=== PATIENT | female | born 1930 | race Caucasian/White ===

== ENCOUNTER → 2016-04-13 | Outpatient (CLI) | payer BC ==
[2016-04-13 13:27] LABS: BASO % 0.5 %; BASO ABS # 0.03 K/uL (0-0.2); COMPLETE YES; HEMATOCRIT 39.6 % (37-47); IG% 0.3 %; LYMPH % 17.6 %; LYMPH ABS # 1.15 K/uL (1.2-3.4); MEAN CELL VOLUME 94.3 fL (80-100); MEAN CORPUSCULAR HGB CONC 30.8 g/dl (32-36); MEAN PLATELET VOLUME 12.1 fL (7.4-10.4); MONO % 12.1 %; NEUT % 67.5 %; PLATELET COUNT 149 K/uL (130-400); WHITE BLOOD COUNT 6.54 K/uL (4.8-10.8)
[2016-04-13 13:39] LABS: TOTAL IRON BINDING CAPACITY 358 mcg/dl (250-450)
--- NOTE | 2016-04-21 13:26 | CODING QUERY MEDICAL NECESSITY ---
SUPPORTING DIAGNOSIS NEEDED A supporting diagnosis is required for the test/procedure performed on this patient in order for us to be reimbursed by the patient's insurance. Please provide a supporting diagnosis for the following test/procedure listed below next to the test name along with your signature. *If there is no additional diagnosis for this patient that would support the following test/procedure please document that below next to the test/procedure. Test(s)/Procedure(s) that require a supporting diagnosis: DOS 04/13 * Vitamin B12 DIAGNOSIS: * Folic Acid DIAGNOSIS: Provider Signature: Date: Thank you Michelle Estrada [facility] Information [facility] Once completed, please kindly fax back to [phone] For questions please call [phone]
== END | disposition home or self-care (01) ==
LOC: C.LABMFLN 10:17
PROVIDERS: ATTEND Family Medicine
DX: I48.91 Unspecified atrial fibrillation (principal); D64.9 Anemia, unspecified

== ENCOUNTER → 2016-06-09 | Outpatient (CLI) | payer BC ==
[2016-06-09 13:11] LABS: ALT/SGPT 23 U/L (12-78); AST/SGOT 21 U/L (15-37); BLOOD UREA NITROGEN 26 mg/dl (7-18); BUN/CREATININE RATIO 29.4 (10-20); CALCIUM 9.3 mg/dl (8.5-10.1); CARBON DIOXIDE 28 mmol/L (21-32); CHLORIDE 105 mmol/L (98-107); CHOLESTEROL 136 mg/dl (0-200); CREATININE 0.87 mg/dl (0.60-1.20); GLUCOSE 100 mg/dl (70-99); MAGNESIUM 2.5 mg/dl (1.8-2.4); SODIUM 140 mmol/L (136-145)
[2016-06-09 13:14] LABS: CHOLESTEROL/HDL RATIO 3.4; HDL CHOLESTEROL 40 mg/dl; LDL CHOLESTEROL CALCULATED 68 mg/dl; TRIGLYCERIDES 140 mg/dl (0-150); VERY LOW DENSITY LIPOPROT CALC 28 mg/dl
--- NOTE | 2016-06-18 08:35 | CODING QUERY MEDICAL NECESSITY ---
SUPPORTING DIAGNOSIS NEEDED A supporting diagnosis is required for the test/procedure performed on this patient in order for us to be reimbursed by the patient's insurance. Please provide a supporting diagnosis for the following test/procedure listed below next to the test name along with your signature. *If there is no additional diagnosis for this patient that would support the following test/procedure please document that below next to the test/procedure. Test(s)/Procedure(s) that require a supporting diagnosis: * VITAMIN D 25-HYDROXY DIAGNOSIS: * DOS: 06/09/16 Provider Signature: Date: Thank you Heather Hurd [facility] Information Management Once completed, please kindly fax back to [phone] For questions please call [phone]
== END | disposition home or self-care (01) ==
LOC: C.LABMFLN 07:48
PROVIDERS: ATTEND Family Medicine
DX: M19.90 Unspecified osteoarthritis, unspecified site (principal); Z23 Encounter for immunization; M10.9 Gout, unspecified; I48.91 Unspecified atrial fibrillation; I10 Essential (primary) hypertension; E78.00 Pure hypercholesterolemia, unspecified; D64.9 Anemia, unspecified; E83.42 Hypomagnesemia; E55.9 Vitamin D deficiency, unspecified

== ENCOUNTER → 2016-06-25 | Outpatient (CLI) | payer BC | END | disposition home or self-care (01) | LOC: C.LABMFLN 08:28 | PROVIDERS: ATTEND Internal Medicine Cardiovascular Disease | DX: I48.2 Chronic atrial fibrillation (principal) ==

== ENCOUNTER → 2016-10-21 | Outpatient (CLI) | payer BC ==
[2016-10-21 13:12] LABS: INR 2.6 (0.9-1.1); PROTHROMBIN TIME (PATIENT) 28.5 SECONDS (9.0-12.0)
[2016-10-21 18:09] LABS: ALT/SGPT 20 U/L (12-78); AST/SGOT 18 U/L (15-37); BLOOD UREA NITROGEN 23 mg/dl (7-18); BUN/CREATININE RATIO 24.1 (10-20); CALCIUM 10.2 mg/dl (8.5-10.1); CARBON DIOXIDE 29 mmol/L (21-32); CHLORIDE 105 mmol/L (98-107); CREATININE 0.95 mg/dl (0.60-1.20); GLUCOSE 83 mg/dl (70-99); MAGNESIUM 2.4 mg/dl (1.8-2.4); POTASSIUM 4.3 mmol/L (3.5-5.1); SODIUM 141 mmol/L (136-145)
[2016-10-21 18:13] LABS: CHOLESTEROL 137 mg/dl (0-200); CHOLESTEROL/HDL RATIO 4.4; HDL CHOLESTEROL 31 mg/dl; LDL CHOLESTEROL CALCULATED 77 mg/dl; TOTAL IRON BINDING CAPACITY 307 mcg/dl (250-450); TRIGLYCERIDES 147 mg/dl (0-150); URIC ACID 4.5 mg/dl (2.6-7.2); VERY LOW DENSITY LIPOPROT CALC 29 mg/dl
[2016-10-21 18:17] LABS: BASO % 0.4 %; BASO ABS # 0.03 K/uL (0-0.2); COMPLETE YES; EOS % 2.2 %; HEMATOCRIT 38.4 % (37-47); IG% 0.3 %; LYMPH % 23.8 %; LYMPH ABS # 1.87 K/uL (1.2-3.4); MEAN CELL VOLUME 94.3 fL (80-100); MEAN CORPUSCULAR HEMOGLOBIN 28.7 pg (25-34); MEAN CORPUSCULAR HGB CONC 30.5 g/dl (32-36); MEAN PLATELET VOLUME 12.3 fL (7.4-10.4); MONO % 11.7 %; NEUT % 61.6 %; PLATELET COUNT 158 K/uL (130-400); RED BLOOD COUNT 4.07 M/uL (4.2-5.4); WHITE BLOOD COUNT 7.85 K/uL (4.8-10.8)
== END | disposition home or self-care (01) ==
LOC: C.LABMFLN 11:49
PROVIDERS: ATTEND Family Medicine
DX: M10.9 Gout, unspecified (principal); I48.91 Unspecified atrial fibrillation; I10 Essential (primary) hypertension; E78.00 Pure hypercholesterolemia, unspecified; D64.9 Anemia, unspecified

== ENCOUNTER → 2016-11-11 | Outpatient (CLI) | payer BC ==
[2016-11-11 18:01] LABS: HEMATOCRIT 38.9 % (37-47)
--- NOTE | 2016-12-03 09:09 | CODING QUERY MEDICAL NECESSITY ---
SUPPORTING DIAGNOSIS NEEDED Dr. Coreas, A supporting diagnosis is required for the test/procedure performed on this patient in order for us to be reimbursed by the patient's insurance. Please provide a supporting diagnosis for the following test/procedure listed below next to the test name along with your signature. *If there is no additional diagnosis for this patient that would support the following test/procedure please document that below next to the test/procedure. Test(s)/Procedure(s) that require a supporting diagnosis: * ([id number]) B12 VITAMIN LEVEL DIAGNOSIS: * ([id number]) FOLATE LEVEL DIAGNOSIS: DATE OF SERVICE: 11/11/16 Provider Signature: Date: Thank you Kwadwo Madsen [facility] Information Management Once completed, please kindly fax back to [phone] For questions please call [phone]
== END | disposition home or self-care (01) ==
LOC: C.LABMFLN 11:53
PROVIDERS: ATTEND Family Medicine
DX: D64.9 Anemia, unspecified (principal); I48.91 Unspecified atrial fibrillation; E53.8 Deficiency of other specified B group vitamins

== ENCOUNTER → 2016-12-09 | Outpatient (CLI) | payer BC ==
[2016-12-09 17:52] LABS: BASO % 0.3 %; BASO ABS # 0.02 K/uL (0-0.2); COMPLETE YES; EOS % 2.1 %; HEMATOCRIT 37.1 % (37-47); IG% 0.5 %; LYMPH % 21.5 %; MEAN CELL VOLUME 95.4 fL (80-100); MEAN CORPUSCULAR HEMOGLOBIN 29.8 pg (25-34); MEAN CORPUSCULAR HGB CONC 31.3 g/dl (32-36); MEAN PLATELET VOLUME 11.6 fL (7.4-10.4); MONO % 10.3 %; NEUT % 65.3 %; PLATELET COUNT 144 K/uL (130-400); RED BLOOD COUNT 3.89 M/uL (4.2-5.4); WHITE BLOOD COUNT 6.52 K/uL (4.8-10.8)
[2016-12-09 18:08] LABS: ALT/SGPT 15 U/L (12-78); BLOOD UREA NITROGEN 30 mg/dl (7-18); BUN/CREATININE RATIO 32.3 (10-20); CALCIUM 9.9 mg/dl (8.5-10.1); CARBON DIOXIDE 29 mmol/L (21-32); CHLORIDE 106 mmol/L (98-107); CREATININE 0.94 mg/dl (0.60-1.20); GLUCOSE 101 mg/dl (70-99); MAGNESIUM 2.5 mg/dl (1.8-2.4); POTASSIUM 4.1 mmol/L (3.5-5.1); SODIUM 140 mmol/L (136-145)
[2016-12-09 18:19] LABS: ALB/GLOB RATIO 0.9 (0.9-2); ALKALINE PHOSPHATASE 118 U/L (45-117); AST/SGOT 18 U/L (15-37)
== END | disposition home or self-care (01) ==
LOC: C.LABMFLN 11:52
PROVIDERS: ATTEND Family Medicine
DX: I48.91 Unspecified atrial fibrillation (principal); I10 Essential (primary) hypertension; R26.9 Unspecified abnormalities of gait and mobility; E78.00 Pure hypercholesterolemia, unspecified; G62.9 Polyneuropathy, unspecified; E83.42 Hypomagnesemia; R29.898 Other symptoms and signs involving the musculoskeletal system

== ENCOUNTER → 2017-03-30 | Outpatient (CLI) | payer BC ==
[2017-03-30 12:50] LABS: BASO % 0.4 %; BASO ABS # 0.03 K/uL (0-0.2); EOS % 2.4 %; EOS ABS # 0.16 K/uL (0-0.5); HEMATOCRIT 35.4 % (37-47); HEMOGLOBIN 10.9 g/dL (12.0-16.0); IG# 0.02 K/uL (0.00-0.02); LYMPH % 20.6 %; LYMPH ABS # 1.38 K/uL (1.2-3.4); MEAN CELL VOLUME 95.9 fL (80-100); MEAN CORPUSCULAR HEMOGLOBIN 29.5 pg (25-34); MEAN CORPUSCULAR HGB CONC 30.8 g/dl (32-36); MEAN PLATELET VOLUME 12.2 fL (7.4-10.4); MONO % 10.7 %; MONO ABS # 0.72 K/uL (0.11-0.59); NEUT % 65.6 %; NEUT ABS # 4.39 K/uL (1.4-6.5); PLATELET COUNT 149 K/uL (130-400); RED CELL DISTRIBUTION WIDTH CV 16.2 % (11.5-14.5); RED CELL DISTRIBUTION WIDTH SD 57.4 fL (36.4-46.3)
[2017-03-30 13:23] LABS: BLOOD UREA NITROGEN 31 mg/dl (7-18); CREATININE 1.04 mg/dl (0.60-1.20); GLUCOSE 106 mg/dl (70-99); SODIUM 140 mmol/L (136-145)
[2017-03-30 13:24] LABS: ALT/SGPT 18 U/L (12-78); AST/SGOT 18 U/L (15-37); CALCIUM 9.6 mg/dl (8.5-10.1); CARBON DIOXIDE 28 mmol/L (21-32); POTASSIUM 4.7 mmol/L (3.5-5.1)
[2017-03-30 13:29] LABS: CHOLESTEROL 143 mg/dl (0-200); LDL CHOLESTEROL CALCULATED 90 mg/dl; TRANSFERRIN 279 mg/dl (200-360)
--- NOTE | 2017-04-16 11:56 | CODING QUERY MEDICAL NECESSITY ---
SUPPORTING DIAGNOSIS NEEDED A supporting diagnosis is required for the test/procedure performed on this patient in order for us to be reimbursed by the patient's insurance. Please provide a supporting diagnosis for the following test/procedure listed below next to the test name along with your signature. *If there is no additional diagnosis for this patient that would support the following test/procedure please document that below next to the test/procedure. Test(s)/Procedure(s) that require a supporting diagnosis: * VITAMIN B12 DIAGNOSIS: * FOLIC ACID DIAGNOSIS: Provider Signature: Date: Thank you Trina [place] [employer] Information Management Once completed, please kindly fax back to [phone] For questions please call [phone]
== END | disposition home or self-care (01) ==
LOC: C.LABMFLN 08:50
PROVIDERS: ATTEND Family Medicine
DX: M10.9 Gout, unspecified (principal); I48.91 Unspecified atrial fibrillation; I10 Essential (primary) hypertension; D64.9 Anemia, unspecified; E78.00 Pure hypercholesterolemia, unspecified; M19.90 Unspecified osteoarthritis, unspecified site; E83.42 Hypomagnesemia

== ENCOUNTER → 2017-04-22 | Outpatient (CLI) | payer BC ==
[2017-04-22 12:37] LABS: BASO % 0.6 %; BASO ABS # 0.04 K/uL (0-0.2); EOS % 2.6 %; EOS ABS # 0.17 K/uL (0-0.5); HEMATOCRIT 34.1 % (37-47); HEMOGLOBIN 10.5 g/dL (12.0-16.0); IG# 0.02 K/uL (0.00-0.02); LYMPH % 20.8 %; LYMPH ABS # 1.38 K/uL (1.2-3.4); MEAN CORPUSCULAR HEMOGLOBIN 29.2 pg (25-34); MEAN CORPUSCULAR HGB CONC 30.8 g/dl (32-36); MEAN PLATELET VOLUME 11.6 fL (7.4-10.4); MONO % 12.7 %; MONO ABS # 0.84 K/uL (0.11-0.59); NEUT ABS # 4.18 K/uL (1.4-6.5); PLATELET COUNT 145 K/uL (130-400); RED CELL DISTRIBUTION WIDTH SD 58.7 fL (36.4-46.3); WHITE BLOOD COUNT 6.63 K/uL (4.8-10.8)
== END | disposition home or self-care (01) ==
LOC: C.LABMFLN 10:49
PROVIDERS: ATTEND Family Medicine
DX: D64.9 Anemia, unspecified (principal)

== ENCOUNTER → 2017-11-03 | Outpatient (CLI) | payer BC ==
[2017-11-03 18:16] LABS: HEMATOCRIT 31.7 % (37-47); HEMOGLOBIN 9.5 g/dL (12.0-16.0)
[2017-11-03 18:57] LABS: TRANSFERRIN 299 mg/dl (200-360)
== END | disposition home or self-care (01) ==
LOC: C.LABMFLN 14:18
PROVIDERS: ATTEND Family Medicine
DX: D64.9 Anemia, unspecified (principal)

== ENCOUNTER → 2017-11-11 | Outpatient (CLI) | payer BC ==
[2017-11-17 18:43] LABS: FECAL OCCULT BLOOD #1 POSITIVE (NEGATIVE); FECAL OCCULT BLOOD #2 POSITIVE (NEGATIVE); FECAL OCCULT BLOOD #3 POSITIVE (NEGATIVE)
== END | disposition home or self-care (01) ==
LOC: C.LABSPEC 08:00
PROVIDERS: ATTEND Family Medicine
DX: D64.9 Anemia, unspecified (principal)